=== PATIENT | female | born 1945 | race Caucasian/White ===

== ENCOUNTER 2018-04-15 08:07 | Emergency (ER) | payer OTHER ==
[~2018-04-15] VITALS: Ht 157.5 cm; Wt 63.5 kg
[2018-04-15] MEDS ORDERED: SODIUM CHLORIDE 0.9% 1,000 ML IV ONE ×2 (08:35)
[2018-04-15 10:11] LABS: Basophils # (auto) 0.1 uL; Basophils % (auto) 0.5 % (0.0-2.0); Eosinophils # (auto) 0 uL; Eosinophils % (auto) 0.1 % (0.0-7.0); Hematocrit 33.5 % (36.0-46.0); Hemoglobin 11.9 g/dL (12.2-16.2); Lymphocytes % (auto) 9.1 % (10.0-50.0); Mean Corpuscular Hemoglobin 32.3 pg (28.0-32.0); Mean Corpuscular Hgb Conc. 35.4 g/dL (32.0-36.0); Mean Corpuscular Volume 91.3 fL (80.0-100.0); Monocytes # (auto) 0.7 uL; Monocytes % (auto) 6.7 % (0.0-12.0); Neutrophils # (auto) 8.8 uL; Neutrophils % (auto) 83.6 % (37.0-80.0); Platelet Count (auto) 289 10^3/uL (140-450); Red Blood Cells 3.67 10^6/uL (4.0-5.20); Red Cell Distribution Width 12.6 % (11.8-14.3); White Blood Cell 10.5 10^3/uL (4.4-10.8)
[2018-04-15 10:31] LABS: Alanine Aminotransferase 37 U/L (13-56); Albumin 3.5 g/dL (3.4-5.0); Alkaline Phosphatase 73 U/L (45-117); Anion Gap 6 (5-15); Aspartate Aminotransferase 37 U/L (15-37); Bilirubin, Total 1.5 mg/dL (0.2-1.0); Blood Urea Nitrogen 6 mg/dL (7-18); Calcium 7.7 mg/dL (8.5-10.1); Carbon Dioxide 21 mmol/L (21-32); Chloride 87 mmol/L (98-107); GFR African American 172 mL/min; GFR Non-African American 142 mL/min; Glucose 105 mg/dL (74-106); Potassium 3.6 mmol/L (3.5-5.1); Total Protein 7.1 g/dL (6.4-8.2)
[2018-04-15 10:36] LABS: Sodium 114 mmol/L (136-145)
[2018-04-15] MEDS ORDERED: SODIUM CHL 3% 500 ML IV ONE (11:00)
[2018-04-15 12:00] LABS: Urine Bacteria FEW /hpf (None Seen); Urine Blood Negative /uL (Negative); Urine Specific Gravity 1.005 (1.001-1.035); Urine WBC 95 /hpf (0 - 5)
[2018-04-15] MEDS: MORPHINE SULF INJ 2 MG/ML SYRINGE 1ML IV ONE ×2 (12:05→14:37)
[2018-04-15] MEDS ORDERED: cefTRIAXone 1GM/10ml IVPUSH 10 ML IV ONE (12:15)
[2018-04-15] MEDS ORDERED: PROMETHAZINE HCL 25 MG/ML 1ML IV ONE (14:30)
[2018-04-15 15:31] VITALS: BP 159/97
== END 2018-04-15 11:34 | disposition short-term general hospital (02) ==
LOC: ER 08:07
DX: N39.0 Urinary tract infection, site not specified (principal); E87.1 Hypo-osmolality and hyponatremia; I10 Essential (primary) hypertension
CPT/HCPCS: 36415; 71045; 80053; 81001; 83935; 84295; 84300; 84484; 85025; 93005; 96361; 96374; 96375; 99285; J2270; J2550; J7030